=== PATIENT | male | born 1980 | race Caucasian/White ===

== ENCOUNTER 2024-10-05 17:12 | Emergency (ER) | payer SELFPAY ==
[2024-10-05 17:19] VITALS: BP 159/82
[2024-10-05 17:38] LABS: % Basophils 0.3 % (0-2); % Eosinophils 1.7 % (0-6); % Immature Granulocytes 0.3 % (0-0.5); % Lymphocytes 20.8 % (20.5-51.1); % Monocytes 7.9 % (1.7-9.3); Absolute Eosinophils 0.1 10^3/uL (0-0.7); Absolute Lymphocytes 1.6 10^3/uL (1.2-3.4); Absolute Monocytes 0.6 10^3/uL (0.1-0.6); Absolute Neutrophils 5.4 10^3/uL (1.4-6.5); Hematocrit 43.6 % (39.0-52.0); Hemoglobin 14.8 g/dL (13.0-18.0); Mean Corp Hgb Conc. 33.9 g/dL (33.0-37.0); Mean Corpuscular Hgb 29.5 pg (27.0-31.0); Mean Platelet Volume 9.3 fL (7.4-10.4); Nucleated Red Blood Cells % 0 % (-); Platelet Count 177 10^3/uL (130-400); Red Blood Cell Count 5.01 10^6/uL (4.70-6.10); White Blood Cell Count 7.9 10^3/uL (4.8-10.8)
[2024-10-05 17:53] LABS: ALT (SGPT) 44 U/L (0-50); AST (SGOT) 25 U/L (17-59); Albumin 4.1 g/dl (3.5-5.0); Alkaline Phosphatase 64 U/L (38-126); Blood Urea Nitrogen 26 mg/dl (9-20); Calcium 9.6 mg/dl (8.4-10.2); Carbon Dioxide 30 mmol/L (22-30); Chloride 105 mmol/L (98-107); Glucose 114 mg/dl (70-99); Lipase 85 U/L (23-300); Potassium 4.6 mmol/L (3.5-5.1); Sodium 140 mmol/L (135-145); Total Bilirubin 0.4 mg/dl (0.2-1.3); Total Protein 7.2 g/dl (6.3-8.2); eGFR > 60.00
[2024-10-05] MEDS: NSS 500 IV (18:34)
[2024-10-05] MEDS: TORADOL 15 MG IV (18:34)
[2024-10-05] MEDS: PROTONIX IV 40 MG IV (18:34)
--- NOTE | 2024-10-05 19:05 | ED.GENMED ---
History of Present Illness
<Eric Waters MD - Last Filed: 10/05/24 19:09>
General
Chief Complaint: Abdominal Pain
Source: patient
Exam Limitations: none
Time Seen by Provider: 10/05/24 18:12
Nursing documentation reviewed up to this point in time: agreed with
History of Present Illness
History of Present Illness:
Patient presents to ED secondary to worsening lower abdominal pain over the past 5 days. Abdominal pain described as dull, achy, nonradiating, without alleviating or exacerbating factors. Denies trauma. Denies diarrhea. Mild nausea sensation
reported, without vomiting. Denies loss of appetite. Denies previous history of similar symptoms. Denies back pain. Denies recent travel. Denies sick contact.
Review of Systems
<Eric Waters MD - Last Filed: 10/05/24 19:09>
Review of Systems
Allergies reviewed?: Yes
All Other Systems: ROS reviewed and negative except as documented in HPI and ROS
Constitutional: Reports no symptoms
Respiratory: Reports no symptoms
Cardiac: Reports no symptoms
ABD/GI: Reports abdominal pain; Denies nausea, vomiting or diarrhea
Musculoskeletal: Reports no symptoms
Skin: Reports no symptoms
Neurological: Reports no symptoms
Phy Exam
<Eric Waters MD - Last Filed: 10/05/24 19:09>
Physical Exam
Physical Exam:
Physical Exam
General: mild painful distress, not acutely ill. afebrile
Head: nc/at. eomi
Neck: supple. normal range of motion.
Heart: s1/s2 regular rate and rhythm, no murmur.
Lungs: no acute respiratory distress. clear bilaterally
Abdomen: normal bowel sounds. mild LLQ tenderness to palpation
Neuro: alert and oriented x 3. no focal neurological deficits
Skin: no rash
Psychiatric: well kept. interactive and cooperative
Extremities: no edema. no calf tenderness.
Course
<Eric Waters MD - Last Filed: 10/05/24 19:09>
Orders/Labs/Results
Orders:
Orders
10/05/24 17:26
Complete Blood Count/With Diff Urgent
Comprehensive Metabolic Panel Urgent
Lipase Urgent
10/05/24 18:23
CT Abd/pelvis W Iv Cont Urgent
Comment:
Reason For Exam: Lower abd pain, L>R
0.9% Sodium Chloride 500 ml [Nss] 500 ml IV BOLUS
Ketorolac [Toradol] 15 mg IV NOW STA
Pantoprazole [Protonix IV] 40 mg IV NOW STA
Abnormal Lab Results
10/05/24
17:26
BUN 26 H mg/dl
(9-20)
Glucose 114 H mg/dl
(70-99)
10/05/24 17:26
10/05/24 17:26
Vital Signs
Initial and Last Documented VS:
Initial Vital Signs
Temp Pulse Resp BP Pulse Ox
98.2 F 54 18 159/82 99
10/05/24 17:19 10/05/24 17:19 10/05/24 17:19 10/05/24 17:19 10/05/24 17:19
Last Documented Vital Signs
Temp Pulse Resp BP Pulse Ox
98.2 F 68 18 123/80 96
10/05/24 17:19 10/05/24 21:25 10/05/24 21:25 10/05/24 21:25 10/05/24 21:25
<Tanisha Godwin DO - Last Filed: 10/06/24 02:46>
Orders/Labs/Results
Orders:
Orders
10/05/24 17:26
Complete Blood Count/With Diff Urgent
Comprehensive Metabolic Panel Urgent
Lipase Urgent
10/05/24 18:23
CT Abd/pelvis W Iv Cont Urgent
Comment:
Reason For Exam: Lower abd pain, L>R
0.9% Sodium Chloride 500 ml [Nss] 500 ml IV BOLUS
Ketorolac [Toradol] 15 mg IV NOW STA
Pantoprazole [Protonix IV] 40 mg IV NOW STA
Abnormal Lab Results
10/05/24
17:26
BUN 26 H mg/dl
(9-20)
Glucose 114 H mg/dl
(70-99)
10/05/24 17:26
10/05/24 17:26
Vital Signs
Initial and Last Documented VS:
Initial Vital Signs
Temp Pulse Resp BP Pulse Ox
98.2 F 54 18 159/82 99
10/05/24 17:19 10/05/24 17:19 10/05/24 17:19 10/05/24 17:19 10/05/24 17:19
Last Documented Vital Signs
Temp Pulse Resp BP Pulse Ox
98.2 F 68 18 123/80 96
10/05/24 17:19 10/05/24 21:25 10/05/24 21:25 10/05/24 21:25 10/05/24 21:25
<Tanisha Godwin DO - Last Filed: 10/06/24 02:46>
*Critical Care Note
Total Time (30-74mins, 75-104mins- exclusive of procedures): Not Applicable
<Tanisha Godwin DO - Last Filed: 10/06/24 02:46>
Update Note
Update Note:
Attending Signout Note (Tanisha Godwin DO)
20:50 -assuming care of patient, 44-year-old male presenting for 5 days of lower abdominal pain. Vital signs stable in the emergency department with unremarkable laboratory analysis. Noted to have mild tenderness to the left lower quadrant and
right lower quadrant on exam, pending CT imaging with differential considerations being appendicitis and diverticulitis.
22:15 -patient's CT is negative. On my reassessment, no tenderness to the abdomen. 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 Advised cutting out milk to see if symptoms improve. Otherwise feel stable
for discharge. Also advised outpatient GI follow-up if symptoms are persisting for potential colonoscopy. Return precautions discussed and patient verbalized understanding
ED Attending Note
<Eric Waters MD - Last Filed: 10/05/24 19:09>
-
Portions of this chart may have been created with voice recognition software.� Occasional wrong word or��sound alike� substitutions may have occurred due to the inherent limitations of voice recognition software.
Discharge Plan
Departure
Patient Disposition: Home (Routine Discharge)
Date of Disposition: 10/05/24
Time of Disposition: 22:20
Patient with high blood pressure during this ER visit?: No
Condition: Good
Discharge Problem:
Abdominal pain
Instructions: Abdominal Pain
Referrals:
Cat Hawk MD [Active] -
NONE,* [Family Provider] -
Activity Restrictions/Additional Instructions:
You were seen in the emergency department for abdominal pain
You were found to have normal blood work and CT imaging of your abdomen.
Please follow-up closely with your primary care physician.
Return to the emergency department for any worsening of your symptoms, or any development of chest pain, difficulty breathing, abdominal pain with persistent vomiting and inability to tolerate food or liquid by mouth (concern for dehydration),
weakness, headache or confusion, fever greater than 100.4, or any additional symptoms that are concerning to you.
Thank you for choosing [facility].
Interventions
Interventions:
*Risk Screen - Suicide Last Done: 10/05/24 17:19
*General Assessment Last Done: 10/05/24 17:19
*Neglect/Abuse Screening Last Done: 10/05/24 17:19
*ED COVID-19 Vaccine History Last Done: 10/05/24 17:19
*Nursing Disposition Last Done: 10/05/24 22:36
[id number] Assessment Last Done: 10/05/24 19:00
Discharge Date and Time
Discharge Date/Time: 10/05/24 22:37
Print Language: GRENADIAN
[2024-10-05 21:25] VITALS: BP 123/80
== END 2024-10-05 22:37 | disposition home or self-care (01) ==
LOC: EMR 17:12
PROVIDERS: Emergency Medicine; EMERGENCY PHYSICIAN Student in an Organized Health Care Education/Training Program
DX: R10.30 Lower abdominal pain, unspecified (principal); K90.49 Malabsorption due to intolerance, not elsewhere classified
CPT/HCPCS: 96374; 96375; 96361; 99284; 74177; 80053; 83690; 85025; Q9967